=== PATIENT | male | born 1935 | race Caucasian/White ===

== ENCOUNTER 2017-02-07 06:11 | Day surgery (SDC) | payer OTHER ==
[~2017-02-07] VITALS: Ht 193 cm; Wt 120.7 kg
[~2017-02-07 06:11] MED LIST: ASPI81 PO; SIMV40TA PO; TOPR100T15 PO
[2017-02-07] MEDS ORDERED: LOSA25TA PO (06:46)
[2017-02-07] MEDS ORDERED: TYLE325T PO (06:46)
[2017-02-07] MEDS ORDERED: OMEP20TA PO (06:46)
[2017-02-07] MEDS ORDERED: PRAV80TA2 PO (06:46)
[2017-02-07] MEDS ORDERED: METO100T9 PO (06:46)
[2017-02-07] MEDS ORDERED: XARE20TA PO (06:46)
[2017-02-07] MEDS ORDERED: AMLO5TAB2 PO (06:46)
[2017-02-07 06:47] VITALS: BP 183/114; PULSE 55; RESP 18; TEMP 97.7; O2SAT 98
[2017-02-07 07:00] LABS: AUTOMATED NEUTROPHIL # 2.8 TH/MM3 (1.8-7.7); BASOPHIL # 0.1 TH/MM3 (0-0.2); BASOPHIL % 1.1 % (0.0-2.0); EOSINOPHIL # 0.2 TH/MM3 (0-0.4); EOSINOPHIL % 3.6 % (0.0-4.0); HEMATOCRIT 47.4 % (39.0-51.0); HEMO FLAGS DIFF FINAL; LYMPH % 36.7 % (9.0-44.0); LYMPHOCYTE # 2.1 TH/MM3 (1.0-4.8); MEAN CELL VOLUME 87.9 FL (80.0-100.0); MEAN CORPUSCULAR HGB CONC 34.2 % (32.0-36.0); MONO % 8.2 % (0.0-8.0); NEUT % 50.4 % (16.0-70.0); PLATELET COUNT 118 TH/MM3 (150-450); RED BLOOD COUNT 5.39 MIL/MM3 (4.50-5.90); RED CELL DISTRIBUTION WIDTH 14.2 % (11.6-17.2); WHITE BLOOD COUNT 5.7 TH/MM3 (4.0-11.0)
[2017-02-07 07:09] LABS: APTT (PATIENT) 30.2 SEC (24.3-30.1); INTERNATIONAL NORMALIZED RATIO 1.1 RATIO; PROTHROMBIN TIME - PATIENT 12.6 SEC (9.8-11.6)
[2017-02-07] MEDS ORDERED: SODIUM CHLOR 0.9% 250 ML INJ 250 ML ONE (07:12)
[2017-02-07] MEDS ORDERED: ceFAZolin INJ 1,000 MG VIAL ONE (07:12)
[2017-02-07] MEDS ORDERED: VANCOMYCIN HCL 1000 MG VIAL ONE (07:12)
[2017-02-07] MEDS ORDERED: LIDOCAINE HCL 2% 50 ML VIAL ONE (07:12)
[2017-02-07] MEDS ORDERED: VANCOMYCIN 500 MG VIAL ONE (07:12)
[2017-02-07 07:14] LABS: BICARBONATE 22.7 MEQ/L (21.0-32.0); POTASSIUM 4.2 MEQ/L (3.5-5.1)
[2017-02-07] MEDS ORDERED: CHLORHEXIDINE GLUCONATE 2 % 1 PACK (2 CLOTHS) TOPICAL SCH (07:45)
[2017-02-07] MEDS ORDERED: ceFAZolin 2 GM PREMIX 50 ML IV SCH (07:45)
[2017-02-07] MEDS ORDERED: POVIDONE IODINE 5% (ANTISEPSIS KIT) 4 APPLICATIONS EACH NARE SCH (07:45)
[2017-02-07] MEDS ORDERED: NS 1000 ML IV SCH (07:45)
[2017-02-07] MEDS ORDERED: INSULIN HUMAN REGULAR 1,000 UNITS/10 ML VIAL SQ PRN (07:45)
[2017-02-07] MEDS ORDERED: LACTATED RINGER'S 1000 ML IV PRN (07:45)
[2017-02-07] MEDS ORDERED: CHLORHEXIDINE GLUCONATE 2 % 1 PACK (2 CLOTHS) TOPICAL PRN (07:45)
[2017-02-07] MEDS ORDERED: VANCOMYCIN 1000 MG/NS 250 ML IV SCH ×2 (07:45)
[2017-02-07] MEDS ORDERED: MUPIROCIN 2% OINT 1 APPLIC/GM SYR NASAL SCH (07:45)
[2017-02-07] MEDS ORDERED: POVIDONE IODINE 5% (ANTISEPSIS KIT) 4 APPLICATIONS EACH NARE PRN (07:45)
[2017-02-07] MEDS ORDERED: SODIUM CHLORID 0.9% 500 ML IV PRN (07:45)
[2017-02-07] MEDS ORDERED: METOPROLOL TARTRATE 25 MG TAB PO PRN (07:45)
[2017-02-07] MEDS ORDERED: CEPH-460 PO (08:11)
[2017-02-07] MEDS ORDERED: TYLETAB34 PO (08:11)
[2017-02-07] MEDS ORDERED: ACETAMINOPHEN/CODEINE 300 MG/30 MG TAB PO PRN ×2 (08:15)
--- NOTE | 2017-02-07 08:17 | CATHPROC ---
[facility] HIS Report Study Information Study Number Admission Scheduled Start Study Start [id number] Feb 07 2017 6:11AM 02/07/2017 Feb 07 2017 7:37AM [place] [facility] Cardiac Pacer/ICD Admit Source Facility Department Other [facility] - [facility] Physician and Clinical Staff Initial Renetta Thompson Goggles Assembler Richa Mora,RT(R) Goggles Assembler Camueliams, Rachel,HEALTHCARE SOCIAL WORKER Other Anesthesia, SENIOR FINANCE MANAGER Recorder Jacqui Wilkerson,RN Scrub Radha Alcala,MACHINE COIL ASSEMBLER TECH2 Equipment Time Senior Marketing Specialist Description Size Mfg Part Number Used/Scraped DERMABOND, ADHESIVE SKIN [id number] 07:42 CORDIS/PACER * Used GLUE MINI *[id number] 07:42 MEDLINE INDUSTRIES SUTURE, STRIP PLUS 1/2" * Used *[id number] 07:42 MEDLINE PACER ALVAREZ, LIMB * 2530 *[id number] Used [id number] 07:42 MEDLINE PACER PACK, PACER CUSTOM * Used *[id number] 07:45 Needle Sponge Count 1 1 Used 07:45 Needle Sponge Count 1 111 Used 07:50 Needle Sponge Count 20 200 Used SUTURE, 0 ETHIBOND [CT1] (CX21D), 8pk SUTURE, 2-0 VICRYL [CT1] (PCA560H) SUTURE, 2-0 VICRYL [CT1] (UKX736W) [id number] 07:42 [employer],WARM AIR CCL * Used *[id number] [facility] PAD, ELECTROSURGICAL 07:42 * [id number] *[id number] Used SURGICAL GROUNDING ORANGE 08:00 VITATRON MEDTRONIC PLASMABLADE, PEAD 3.0S * [id number] Used [id number] 07:42 [employer]OLL [employer] ADAN. ELECTRODE, PRO-PADZ BIPHASIC * Used *[id number] History: Allergies Allergy Reaction Morphine Sulfa History: Risk Factors Family History of Hypertension Dyslipidemia Previous PR Previous Heart Failure Premature CAD Yes No No No No Prior Valve Prior PCI Prior CABG Surgery Yes No No Cerebrovascular Peripheral Artery Chronic Lung On Dialysis Diabetes Disease Disease Disease No No No Yes No Medication Medication Total Dose (Bolus/Oral) Medication Total Dosage/Unit 2% XYLOCAINE 50 mL Medications (Bolus/Oral) Medication Time Given Dosage/Unit Administered By Reason 2% XYLOCAINE 02/07/2017 7:57:01 AM 50 mL Renetta Patel 50 mL 2% XYLOCAINE given in lab by Renetta Patel in Left shoulder via Subcutaneous. Ordered by Renetta Patel. LEFT UPPER CHEST Medication (Drip) Medication Time Given Dosage/Unit Concentration/Unit Diluent (ml) Solution ANCEF 02/07/2017 7:40:43 AM 2 g 2 g ANCEF given in lab by Renetta Patel via Peripheral IV. Ordered by Renetta Patel. VANCOMYCIN DRIP 02/07/2017 7:40:55 AM 1 g 1 g VANCOMYCIN DRIP given in lab by Anesthesia, SENIOR FINANCE MANAGER via Peripheral IV. Ordered by Renetta Patel. Initial Case Assessment Cardiovascular HR Rhythm NIBP Chest Pain 55 PACED 162/99 0 Edema Present Skin color Skin None Normal Warm Dry Respiration - General Respiration Rate SpO2 (%) (B/min) 18 97 Final Case Assessment Cardiovascular HR Rhythm NIBP Chest Pain 68 PACED 125/78 0 Edema Present Skin color Skin None Normal Warm Dry Circulatory - Right Pulses Dorsalis Pedis 1 Scale (0,1,2,3,4,d) Circulatory - Left Pulses Dorsalis Pedis 1 Scale (0,1,2,3,4,d) Neurological State Oriented to time-place- Alert Moves all extremities person Respiration - General Respiration Rate SpO2 (%) O2 (lpm) (B/min) 18 95 2 Chronological Log Time Study Chronological Log 7:23:10 Patient arrived via Bed. 7:23:15 Patient Name, D.O.B, / Armband Verified By R.N. Anesthesia at bedside. Assumes care of patient. SEE RECORDS FOR ALL MEDS AND VITALS DURING CASE (DORIS, 7:23:50 SENIOR FINANCE MANAGER) 7:30:00 Verbal Stimulation=2 Physical Stimulation=2 Airway=2 Respiration=2 TOTAL=8. (0=absent, 1=li mited, 2=present) 7:31:00 Patient has been NPO for More than 6Hrs. 7:31:55 Skin Breakdown- NONE PER PATIENT 7:40:43 2 g ANCEF given in lab by Renetta Patel via Peripheral IV. Ordered by Renetta Patel. 7:40:55 1 g VANCOMYCIN DRIP given in lab by LALITO Farrell via Peripheral IV. Ordered by Stephani Patel. 7:43:04 Patient Warmer Placed on the Table. 7:43:05 Disposable Defibrillator Pads Placed On Patient. 7:43:08 Chaz Prominences Protected 7:43:09 A # 20 IV was noted in the Antecubital (left). Grade = 0 7:43:22 A # 20 IV was noted in the Wrist (right). Grade = 0 7:43:31 History and physical on the chart or being dictated. Assessment: Initial Case, HR=55 BPM, Rhythm=PACED, YZZA=716/99 mmhg, Chest Pain=0, Edema=None, 7:43:32 Color=Normal, Skin = Warm, Dry Respiration: Resp=18 B/min, SpO2=97 % 7:44:14 Table restraints applied according to hospital policy 7:44:14 Left Upper Chest Prepped Times Two. BY RICHA Kelly 7:44:26 Bovie ground pad applied to: RIGHT THIGH 7:44:34 2% CHLORHEXIDINE GLUCONATE WASH AND NASAL SWIPE DONE PRIOR TO PROCEDURE. First Sponge And Instrument Count Done by Radha Alcala, MACHINE COIL ASSEMBLER TECH2. 7:44:38 Hypo's: 1, Sponges: sponges, Bovie/scratch: 1 Sutures: 4, Blades: 1, Instruments: 26, Syveck Patches: ~SYVECK PATCH~ Time Out. Correct patient, procedure, procedure equipment, site and side verified with physician present. Time 7:56:30 concurred by MD, individual staff and SENIOR FINANCE MANAGER. 7:56:33 Reference ECG taken Time Out #2 - Consents verified, patient in correct position, all results are labled and display ed, safety precautions 7:56:45 taken, antibiotics administered. Time out concurred by MD, individual staff and SENIOR FINANCE MANAGER in procedur e 7:56:57 Case Start 50 mL 2% XYLOCAINE given in lab by Renetta Patel in Left shoulder via Subcutaneous. Ordered by Renetta Stevens. 7:57:01 LEFT UPPER CHEST 7:59:18 Surgical Incision Made. 7:59:59 A pocket was created at the L Upper Chest. 8:02:11 A device was explanted. 8:02:15 A implantable was connected and placed in the pocket. 8:02:49 Pocket flushed with antibiotic solution 8:05:59 A implantable was connected and placed in the pocket. SECOND Sponge And Instrument Count Done by Radha Alcala, MACHINE COIL ASSEMBLER TECH2. 8:06:06 Hypo's: 1, Sponges: 20, Bovie/scratch: 1 Sutures: 2, Blades: 1, Instruments: 26, Syveck Patches: ~SYVECK PATCH~ VERIFIED BY RACHEL Mercado 8:06:14 The pocket was closed. CATHLEEN F ASSIST 8:06:20 Case End 8:06:24 Implant Procedure was performed. 8:06:33 A PPM Implant . (Dual) BIV PM GEN CHANGE 8:09:27 Bedside Report will be given. 8:09:28 DOCU called. Spoke to TOBIAS 8:10:13 Steri-strips and a sterile dressing applied to site. 8:10:22 No case complications noted. 8:10:23 Cine recording checked. 8:10:24 Bedside Report will be given. 8:10:27 Implantable Device card placed in patient's chart. 8:16:14 Defibrillator and ground pads removed. Skin intact. 8:16:15 Verbal Stimulation=2 Physical Stimulation=2 Airway=2 Respiration=2 TOTAL=8. (0=absent, 1=l imited, 2=present) Assessment: Final Case, HR=68 BPM, Rhythm=PACED, BADZ=032/78 mmhg, Chest Pain=0, Edema=None, Color=Normal, Skin = Warm, Dry Right Pulses: Elliott Ped=1 8:16:56 Left Pulses: Elliott Ped=1 Neurological: State=Alert, Ox3, [place] Respiration: Resp=18 B/min, SpO2=95 %, O2=2 lpm 8:21:24 Patient moved to [facility] End Study - Contrast Media Used In Study Contrast Total Opened (mL) Total Used (mL) Total Wasted (mL) Unspecified 0 0 0 End Study - Radiation Exposure Fluoro Time (minutes) 0.0 End Study - Patient Disposition Complications Transferred To Interventional Outcome No Telemetry Bed successful
--- NOTE | 2017-02-07 08:35 | EKG ---
Date Performed: 02/07/2017 Time Performed: 06:55:56 PTAGE: 81 years EKG: Ventricular pacing Lead(s) unsuitable for analysis: V1 Pacemaker rhythm - no further analys is Abnormal ECG PREVIOUS TRACING : 02/02/2012 11.07 DOCTOR: Khalif Hernández Interpretating Date/Time 02/07/2017 08:33:18
--- NOTE | 2017-02-07 09:41 | MP ---
cc: GERMAINE WRIGHT M.D. DATE OF SURGERY: 02/07/2017 OPERATION: Biventricular pacer removal, biventricular pacer replacement, pocket revision. INDICATION Mr. Reese is a 81-year-old gentleman with atrial fibrillation, apparent previous AV node ablation, previous biventricular pacer inserted, generator end of life, admitted for generator replacement. The risks, the nature and the benefit of the procedure are clearly stated to him. The risks include pneumothorax, cardiac perforation, stroke, infection and even . The patient understood and agreed to proceed. PROCEDURE After written informed consent was obtained, the patient was brought to the EP lab where he was prepped and draped in the usual sterile fashion. Conscious sedation was initiated and maintained throughout the procedure by anesthesiologist. Once sedation was verified, the left infraclavicular area was anesthetized with 2% Xylocaine. Using ___ blade a 3-cm incision was made over the existing generator. This incision was then taken down to deep fascial layer using Bovie cautery and blunt dissection. Once exposed the generator was removed from the pocket. Scar tissue was removed around the lead. The lead was tested. After adequate pacing and sensing threshold was obtained, the pocket was copiously irrigated using antibiotic solution. Subsequently, the leads were connected to the new generator and placed into the pocket. I did proceed with wound closure. The deep fascial layer was approximated using #2-0 Vicryl suture in a continuous fashion. The subcutaneous layer was approximated using #2-0 Vicryl suture in a continuous fashion. The subcuticular layer was approximated using #2-0 Vicryl suture in a continuous fashion. Dermabond adhesive was applied to the wound followed by sterile pressure dressing. There was no complication. The patient tolerated the procedure. Blood loss was minimal. 1. Explanted hardware. The explanted biventricular pacer is a [employer], model number [id number], serial number [id number], that was implanted in January of 2012. 2. Implanted hardware. The implanted biventricular pacer is a [employer], model number [id number], serial number [id number]. 3. Threshold. The right atrial pacing threshold cannot be measured, the patient in atrial fibrillation ___ 0.4 mV. Lead impedance 460 ohms. The right ventricular pacing threshold in bipolar mode was 1.5 volts at 0.5 milliseconds, lead impedance 560 ohms. R-wave could not be measured, the patient is pacemaker dependent. The left ventricular pacing threshold in bipolar mode was 2 volts at 0.5 milliseconds, lead impedance 700 ohms. 4. Setting. The device set VVIR 60, upper rate limit 120 beats per minute, LV first by 40 milliseconds. CONCLUSION Successful biventricular pacer removal, biventricular pacer replacement. COMMENT AND RECOMMENDATION The patient is going to be transferred to the telemetry unit. Will be observed and when stable can be discharged home. MD LEOPOLDO Chaudhry/JITENDRA /8:12 AM /9:26 AM
[2017-02-07] MEDS ORDERED: PROPOFOL 200 MG/20 ML AMP IV ONE (16:22)
== END 2017-02-07 10:20 | disposition home or self-care (01) ==
LOC: HCAT 06:11 → HDIC 06:11 → HCAT 10:20
PROVIDERS: ATTEND Internal Medicine Interventional Cardiology
DX: Z45.018 Encounter for adjustment and management of other part of cardiac pacemaker (principal); I48.1 Persistent atrial fibrillation; R94.31 Abnormal electrocardiogram [ECG] [EKG]; R06.00 Dyspnea, unspecified; R06.02 Shortness of breath; R53.83 Other fatigue; I10 Essential (primary) hypertension; E11.9 Type 2 diabetes mellitus without complications; E78.5 Hyperlipidemia, unspecified; G47.33 Obstructive sleep apnea (adult) (pediatric); E66.9 Obesity, unspecified; Z87.891 Personal history of nicotine dependence; Z95.2 Presence of prosthetic heart valve
CPT/HCPCS: 33229; 80048; 85025; 85610; 85730; 86850; 86900; 86901; 93005; C2621; J0690; J3010; J3370; J7050